=== PATIENT | female | born 1965 | race Asian ===

== ENCOUNTER 2018-04-16 08:04 | Day surgery (SDC) | payer OTHER ==
[2018-04-15 14:38] VITALS: BMI 29.8
[2018-04-16] MEDS ORDERED: LIDOCAINE HCL/PF 2% SDV 5ML VIAL ONE (09:07)
[2018-04-16] MEDS ORDERED: SODIUM CHLORIDE 0.9% P/F 10 ML VIAL IJ ONE (09:07)
[2018-04-16] MEDS ORDERED: DEXAMETHASONE SOD PHOSPHATE 4 MG/1 ML VIAL ONE (09:07)
[2018-04-16] MEDS ORDERED: ceFAZolin SODIUM 1 GM VIAL ONE (09:07)
[2018-04-16] MEDS ORDERED: PROPOFOL 20 ML ONE (09:09)
--- NOTE | 2018-04-16 09:40 | HP ---
Satellite H - Chief Complaint Chief Complaint: right knee pain - Past Medical History Allergies/Adverse Reactions: Allergies Allergy/AdvReac Type Severity Reaction Status Date / Time No Known Allergies Allergy Verified 04/15/18 14:39 ...LMP: 04/01/15 - Current Medications Current Medications: Home Medications Medication Instructions Recorded Olmesartan Medoxomil [Benicar -] 5 mg PO DAILY 05/12/14 Atorvastatin Ca [Lipitor] 10 mg PO DAILY 04/15/18 Oxycodone HCl/Acetaminophen 1 tab PO Q6H #20 tablet MDD 4 04/16/18 [Percocet 5-325 mg Tablet] Satellite Physical Exam - Physical Examination Vital Signs: Vital Signs Period Temp Pulse Resp BP Sys/Kellogg Pulse Ox Last 24 Hr 97.4 F-97.4 F 66-66 20-20 127-127/77-77 99 General Appearance: Well Nourished, Well Developed, Alert & Oriented x3 ENT: Clear Lung: Normal air movement Heart: Regular rate & rhythm Extremities: Other (right knee- + swelling, + ttp, decr rom, + mcmurrays, nvi MRI + mt) Neurological: Intact, Alert, Oriented Satellite Impression/Plan - Impression/Plan Impression: right knee internal derangement Operative Procedure: right knee arthroscopy Date to be Performed: 04/16/18
[2018-04-16] MEDS ORDERED: MIDAZOLAM HCL 2 MG/2 ML SINGLE DOSE VIAL ONE (09:48)
[2018-04-16] MEDS ORDERED: ceFAZolin SODIUM 1 GM VIAL IVPB ONE (10:06)
[2018-04-16] MEDS ORDERED: KETOROLAC TROMETHAMINE 30 MG/1 ML VIAL ONE (10:18)
[2018-04-16] MEDS ORDERED: ePHEDrine SULFATE 50 MG/1 ML AMPULE ONE (10:21)
--- NOTE | 2018-04-16 10:51 | OP ---
Operative Note - Note: Operative Date: 04/16/18 ([facility]) Pre-Operative Diagnosis: right knee internal derangement Operation: right knee artrhoscopy with PMM, PLM, synovectomy, debridement chondrolasty, removal of loose bodies Post-Operative Diagnosis: Same as Pre-op Surgeon: Sebastian Park Anesthesiologist/CABLE HOOKER: Jez Bennett Anesthesia: General, Local Specimens Removed: loose bodies, shavings Estimated Blood Loss (mls): 5 Operative Report Dictated: Yes
--- NOTE | 2018-04-16 11:38 | OP ---
DATE OF OPERATION: 04/16/2018 PREOPERATIVE DIAGNOSES: Right knee pain, meniscus tear, and loose body. POSTOPERATIVE DIAGNOSES: Right knee pain, meniscus tear, loose body, synovitis, and osteoarthritis. PROCEDURE: Right knee arthroscopy, partial medial meniscectomy, debridement with chondroplasty, and arthroscopic and partial synovectomy, and removal of 2 large loose bodies. SURGEON: Sebastian Park MD TRANSITION COACH: None. PRIMER CHARGING TOOL SETTER: Jez Bennett CRNA ANESTHESIOLOGIST: Shima Terry MD ANESTHESIA: LMA anesthesia. DRAINS: None. COMPLICATIONS: None. SPECIMEN: Loose bodies, right knee. BLOOD LOSS: None. BLOOD GIVEN: None. FLUID REPLACEMENT: 700 mL PlasmaLyte. INDICATION: This patient is a 53-year-old female with preoperative diagnosis of right knee pain, medial meniscus tear, and loose body, after understanding the potential risks, complications, alternatives, and benefits of surgical versus nonsurgical treatment, the patient elected to undergo this procedure. DESCRIPTION OF PROCEDURE: The patient was brought into the operating room, peripheral IV placed and IV sedation given. Two g of Ancef were given. LMA anesthesia was induced. The right lower extremity was prepped and draped in a sterile fashion, elevated, and exsanguinated with Esmarch bandage, and tourniquet inflated to 275 mmHg. A superomedial portal was established. A lateral portal was established. Under direct visualization, a medial portal was established, and a diagnostic arthroscopy was performed. In the medial compartment, patient was seen to have good cartilage on the medial femoral condyle and the medial tibial plateau but a small tear on the posterior horn of the medial meniscus. Photographs were taken. This was debrided with the curved shaver. Photographs were taken again. The intercondylar notch looked good. The ACL had the appropriate tension. In the lateral compartment, everything looked good in the lateral meniscus, had no tear, in lateral femoral condyle and lateral tibial plateau, both looked good. Next our attention turned to the patellofemoral joint where the patient had significant areas of widespread grade 4 osteoarthritis/completely exposed bone on the undersurface of the patella as well as the femoral trochlea. There were some loose flaps. These were debrided. After the debridement chondroplasty, there was a lot of synovitis within the superior patellar pouch as well as along the medial aspect in the medial gutter. This was all removed. After this partial synovectomy was performed, there was a very large osteocartilaginous loose body which was removed in its entirety with the grasper and passed off the field as specimen. The loose body was extremely large measured at approximately 2 cm x 1.5 cm x 1.5 cm. Additional synovectomy was performed in the area of the loose body. Photographs were taken of that as well as the arthritic patellofemoral joint. There was 1 other loose body that had adhered itself to the medial femoral condyle. This was removed as well with the grasper, cleaned up with the basket forceps, and the shaver. The area was copiously irrigated and washed out. All instrumentation was removed. Excess saline and shavings removed. The arthroscopy portal was closed with 3-0 nylon suture. The area was then washed and dried and covered. Twenty mL of 0.5% Marcaine was introduced into the joint. Next the incisions were covered with Xeroform, 4 x 4 gauze, Webril, and an Miguel bandage. Tourniquet was taken down after total tourniquet time of about 35 minutes. There were no complications during the case. Patient tolerated the procedure well, was brought to the ambulatory recovery room in stable condition. Chelsea [id number]
[2018-04-16] MEDS ORDERED: PROMETHAZINE HCL 25 MG/1 ML VIAL IVPUSH PRN (11:44)
[2018-04-16] MEDS ORDERED: ONDANSETRON 4 MG/2 ML VIAL IVPUSH PRN (11:44)
[2018-04-16] MEDS ORDERED: oxyCODONE HCL 5 MG TABLET PO PRN (11:44)
[2018-04-16] MEDS ORDERED: ONDANSETRON 4 MG/2 ML VIAL ONE (13:08)
[2018-04-16] MEDS ORDERED: ONDANSETRON 4 MG/2 ML VIAL IVPUSH ONE (13:10)
[2018-04-16 14:46] VITALS: BP 118/76; PULSE 72; TEMP 97.4
--- NOTE | 2018-04-18 16:37 | PATH ---
Surgical Pathology Report Patient Name: MARVA FAUST [facility]. Rec. #: [id number] /Age/Gender: 1965 (Age: 53) / F Account: [id number] Location: [facility] SURGICAL Taken: 04/16/2018 Received: 04/16/2018 Reported: 04/18/2018 Physicians: Sebastian Park M.D. Specimen(s) Received A: SHAVINGS RIGHT KNEE B: JOINT, LOOSE BODY RIGHT KNEE Clinical History Torn meniscus right knee, loose body Final Diagnosis A. KNEE SHAVINGS, RIGHT, ARTHROSCOPY, PARTIAL MENISCECTOMY, SYNOVECTOMY: FRAGMENTS OF CARTILAGE, DENSE FIBROCONNECTIVE TISSUE, ADIPOSE TISSUE, AND REACTIVE SYNOVIUM. B. KNEE, RIGHT, LOOSE BODY, REMOVAL: LOOSE BODY. Electronically Signed Keri Awad M.D. Gross Description A. Received in formalin, labeled "shavings right knee," is a 5.0 x 5.0 x 0.4 cm. aggregate of stevens-yellow soft tissue fragments. A sales representative supervisor portion is submitted in one cassette. B. Received in formalin labeled "loose body right knee," is a 1.8 x 1.5 x 0.7 cm stevens portion of calcified cartilage. Sign Poster sections are submitted in one cassette, following decalcification. /04/17/2018 [facility]04/17/2018
== END 2018-04-16 14:35 | disposition home or self-care (01) ==
LOC: JASU-SURG 08:04
PROVIDERS: ATTEND Orthopaedic Surgery
PROC: 0SCC4ZZ Extirpation of Matter from Right Knee Joint, Percutaneous Endoscopic Approach (ICD-10-PCS; 2018-04-16)
PROC: 0SBC4ZZ Excision of Right Knee Joint, Percutaneous Endoscopic Approach (ICD-10-PCS; 2018-04-16)
PROC: 0SBC4ZZ Excision of Right Knee Joint, Percutaneous Endoscopic Approach (ICD-10-PCS; principal; 2018-04-16 09:30)
DX: S83.241A Other tear of medial meniscus, current injury, right knee, initial encounter (principal); M17.11 Unilateral primary osteoarthritis, right knee; M65.861 Other synovitis and tenosynovitis, right lower leg; X58.XXXA Exposure to other specified factors, initial encounter; Y93.9 Activity, unspecified; Y92.9 Unspecified place or not applicable; Y99.9 Unspecified external cause status
CPT/HCPCS: 88304-TC; 94760

== ENCOUNTER 2020-02-18 14:41 | Emergency (ER) | payer OTHER ==
[2020-02-18 14:50] VITALS: BMI 29.2
[2020-02-18] MEDS ORDERED: SODIUM CHLORIDE 1,000 ML IV STA (15:41)
[2020-02-18] MEDS ORDERED: ACETAMINOPHEN 1000 MG/100 ML VIAL (NON FORMULARY) IVPB ONE (15:41)
[2020-02-18] MEDS ORDERED: ACETAMINOPHEN INJECTION 100 ML IVPB ONE (15:48)
[2020-02-18 15:58] LABS: BASO % 1.3 % (0-2.0); EOS % 2.5 % (0-4.5); HEMATOCRIT 42.2 % (32.4-45.2); HEMOGLOBIN 14.3 GM/dl (10.7-15.3); LYMPH % 27.6 % (8-40); MCH 29.1 pg (25.7-33.7); MCHC 33.9 g/dl (32.0-36.0); MEAN CELL VOLUME 85.7 fl (80-96); MEAN PLT VOLUME 9.1 fl (7.5-11.1); MONO % 7.3 % (3.8-10.2); NEUT % 61.3 % (42.8-82.8); PLATELET COUNT 283 K/MM3 (134-434); RBC 4.92 M/mm3 (3.60-5.2); RDW 12.3 % (11.6-15.6); WHITE BLOOD COUNT 7.3 K/mm3 (4.0-10.8)
[2020-02-18 16:04] LABS: ALBUMIN 4.2 g/dl (3.4-5.0); BILIRUBIN,TOTAL 0.4 mg/dl (0.2-1); CALCIUM 9.2 mg/dl (8.5-10); CREATININE 0.7 mg/dl (0.55-1.3); POTASSIUM 3.9 mmol/L (3.5-5.1); TOT PROT 7.7 g/dl (6.4-8.2)
[2020-02-18 16:37] VITALS: BP 152/92; PULSE 84; TEMP 98.5
== END 2020-02-18 16:45 | disposition home or self-care (01) ==
LOC: FER 14:41
DX: I10 Essential (primary) hypertension (principal)
CPT/HCPCS: 36415; 71045-TC-FY; 80053; 82550; 82553; 84484; 85025; 93005; 99285-25; C9803; U0003

== ENCOUNTER 2020-11-17 04:52 | Day surgery (SDC) | payer OTHER ==
[2020-11-15 13:31] VITALS: BMI 29.9
[2020-11-17 10:15] VITALS: TEMP 97.6
[2020-11-17 11:11] VITALS: BP 120/74; PULSE 56
== END 2020-11-17 11:23 | disposition home or self-care (01) ==
LOC: JASU-ENDO 04:52
PROVIDERS: ATTEND Internal Medicine Gastroenterology
PROC: 0DJD8ZZ Inspection of Lower Intestinal Tract, Via Natural or Artificial Opening Endoscopic (ICD-10-PCS; principal; 2020-11-17 09:27)
DX: Z12.11 Encounter for screening for malignant neoplasm of colon (principal); K57.30 Diverticulosis of large intestine without perforation or abscess without bleeding; K64.8 Other hemorrhoids

== ENCOUNTER 2021-07-24 04:18 | Day surgery (SDC) | payer OTHER ==
[2021-07-19 17:49] VITALS: BMI 29.2
[2021-07-24] MEDS ORDERED: DEXAMETHASONE SOD PHOSPHATE 4 MG/1 ML VIAL ONE (07:29)
[2021-07-24] MEDS ORDERED: PROPOFOL 20 ML ONE ×2 (07:29→07:30)
[2021-07-24] MEDS ORDERED: ONDANSETRON 4 MG/2 ML VIAL ONE (07:29)
[2021-07-24] MEDS ORDERED: SUCCINYLCHOLINE CHLORIDE 200 MG/10 ML SYRINGE ONE (07:29)
[2021-07-24] MEDS ORDERED: MIDAZOLAM HCL 2 MG/2 ML SINGLE DOSE VIAL ONE ×2 (07:29)
[2021-07-24] MEDS ORDERED: LIDOCAINE HCL/PF 2% SDV 5ML VIAL ONE (07:29)
[2021-07-24] MEDS ORDERED: SCOPOLAMINE HYDROBROMIDE 1 PATCH PATCH.TD72 ONE (07:37)
[2021-07-24] MEDS ORDERED: ROPIVACAINE HCL 0.5% 30ML VIAL ONE (07:56)
[2021-07-24] MEDS ORDERED: DEXAMETHASONE SOD PHOSPHATE 10 MG/1 ML VIAL ONE (07:56)
[2021-07-24] MEDS ORDERED: ceFAZolin SODIUM 1 GM VIAL IVPB ONE ×2 (08:20→08:28)
[2021-07-24] MEDS ORDERED: ceFAZolin SODIUM 1 GM VIAL ONE (08:25)
[2021-07-24] MEDS ORDERED: ONDANSETRON 4 MG/2 ML VIAL IVPUSH PRN (09:10)
[2021-07-24] MEDS ORDERED: FENTANYL CITRATE/PF 50 MCG/ML VIAL IVPUSH PRN (09:10)
[2021-07-24] MEDS ORDERED: oxyCODONE HCL 5 MG TABLET PO PRN (09:10)
[2021-07-24] MEDS ORDERED: LACTATED RINGERS SOLUTION 1,000 ML IV SCH (09:15)
[2021-07-24 14:19] VITALS: BP 144/81; PULSE 56; TEMP 98.2
== END 2021-07-24 13:50 | disposition home or self-care (01) ==
LOC: JASU-SURG 04:18
PROVIDERS: ATTEND Orthopaedic Surgery
PROC: 0RBK4ZZ Excision of Left Shoulder Joint, Percutaneous Endoscopic Approach (ICD-10-PCS; 2021-07-24)
PROC: 0LS44ZZ Reposition Left Upper Arm Tendon, Percutaneous Endoscopic Approach (ICD-10-PCS; 2021-07-24)
PROC: 0RHK44Z Insertion of Internal Fixation Device into Left Shoulder Joint, Percutaneous Endoscopic Approach (ICD-10-PCS; 2021-07-24)
PROC: 0RNK4ZZ Release Left Shoulder Joint, Percutaneous Endoscopic Approach (ICD-10-PCS; principal; 2021-07-24 08:00)
PROC: 0LM24ZZ Reattachment of Left Shoulder Tendon, Percutaneous Endoscopic Approach (ICD-10-PCS; 2021-07-24 08:00)
DX: M75.102 Unspecified rotator cuff tear or rupture of left shoulder, not specified as traumatic (principal); S46.212A Strain of muscle, fascia and tendon of other parts of biceps, left arm, initial encounter; X58.XXXA Exposure to other specified factors, initial encounter; Y93.9 Activity, unspecified; Y92.9 Unspecified place or not applicable; Y99.9 Unspecified external cause status
CPT/HCPCS: 94760; J1100

== ENCOUNTER 2024-01-21 17:28 | Emergency (ER) | payer OTHER ==
[2024-01-21 17:42] VITALS: BMI 32.5
[2024-01-21] MEDS ORDERED: KETOROLAC TROMETHAMINE 30 MG/1 ML VIAL ONE (18:36)
[2024-01-21] MEDS ORDERED: METOCLOPRAMIDE HCL 10 MG TABLET (FP) PO ONE (18:36)
[2024-01-21] MEDS: KETOROLAC TROMETHAMINE 30 MG/1 ML VIAL IM ONE (18:51)
[2024-01-21] MEDS: METOCLOPRAMIDE HCL 10 MG TABLET (FP) PO ONE (18:52)
[2024-01-21 20:04] VITALS: BP 127/62; PULSE 73; RESP 16; TEMP 98.4
== END 2024-01-21 20:16 | disposition home or self-care (01) ==
LOC: JER 17:28
PROC: 3E0133Z Introduction of Anti-inflammatory into Subcutaneous Tissue, Percutaneous Approach (ICD-10-PCS; principal; 2024-01-21)
DX: R51.9 Headache, unspecified (principal)
CPT/HCPCS: 99284-25